=== PATIENT | female | born 1945 | race Caucasian/White ===

== ENCOUNTER 2024-02-25 16:57 | Emergency (ER) | payer OTHER ==
[2024-02-25 17:34] LABS: Absolute Eosinophils 0.1 K/uL (0-0.5); Absolute Lymphocytes (CBC) 1.4 K/uL (0.7-4.9); Absolute Monocytes 0.9 K/uL (0.1-1.3); Basophils % 0.6 % (0-1.3); Eosinophils % 1.9 % (0-4.4); Hematocrit 22.5 % (36.0-45.0); Hemoglobin 6.9 g/dL (12.0-15.0); Lymphocytes % 18.9 % (15.3-44.8); MCHC 30.7 g/dL (32.0-36.0); MCV 78.4 fL (80-100); MPV 8.5 fL (7.6-11.3); Monocytes % 11.6 % (3.3-12.3); Platelets 321 thou/uL (152-406); RBC Red Blood Cell Count 2.88 M/uL (3.86-4.86); Red Cell Distribution Width 19.3 % (12.1-15.2)
[2024-02-25 17:51] LABS: AST/SGOT 12 U/L (15-37); Albumin 1.8 g/dL (3.4-5.0); Albumin/Globulin Ratio 0.3 (1.1-1.8); Alkaline Phosphatase 100 U/L (45-117); Anion Gap 7.2 mEq/L (5.0-15.0); BUN Blood Urea Nitrogen 23 mg/dL (7-18); Bicarbonate 29 mEq/L (21-32); Bilirubin Total 0.2 mg/dL (0.2-1.0); Globulin 5.9 g/dL (2.3-3.5); Glomerular Filtration Rate 29 ml/min (=/>90); Glucose Level 101 mg/dL (74-106); Lipase 50 U/L (13-75); Potassium 4.2 mEq/L (3.5-5.1); Protein, Total 7.7 g/dL (6.4-8.2); Sodium Level 134 mEq/L (136-145)
[2024-02-25 17:57] LABS: ALT/SGPT < 14 U/L (13-56)
[2024-02-25 17:57] LABS: Specific Gravity 1.014 (1.005-1.030); Transitional Epithelial 20-50 /HPF (None Seen); Urine Bacteria <20 /HPF (<20); Urine Bilirubin NEGATIVE (Negative); Urine Blood 3+ (Negative); Urine Clarity Extremely Turbid (Clear); Urine Color Orange (Yellow); Urine Culture Reflex Order REFLEXED; Urine Glucose NEGATIVE (Negative); Urine Ketones NEGATIVE (Negative); Urine Microscopic Reflex YN ORDER UMIC; Urine Nitrite 2+ (Negative); Urine Protein 3+ (Negative); Urine RBC >50 /HPF (None Seen); Urine Urobilinogen Normal (Normal); Urine WBC >50 /HPF (<5); Urine WBC Clump Many /HPF (None Seen)
--- NOTE | 2024-02-25 18:26 | RAD REPORT ---
Stone Protocol CLINICAL INDICATION: Female, 78 years old.displacement of right nephrostomy tube TECHNIQUE: CT abdomen and pelvis was performed, without IV contrast, as per department protocol using a CT stone protocol. Axial, sagittal and coronal reconstructions were obtained. One or more of the following dose reduction techniques were used: Automated exposure control, adjustment of the mA and/o r kV according to the patient size, and/or iterative reconstruction. Unless otherwise specified, incidental findings do not require dedicated imaging follow-up. [id number]. IV CONTRAST: Not administered. COMPARISON: None FINDINGS: The lack of intravenous contrast limits the sensitivity of this exam for evaluation of solid visceral organs, vascular structures, and retroperitoneum. LOWER CHEST: The visualized lung bases are clear. LIVER: Normal in size and contour. No focal lesion. GALLBLADDER/BILE DUCTS: Cholecystectomy? PANCREAS: No mass, ductal dilation, or denilson-pancreatic fluid. SPLEEN: Normal size. No focal lesion. ADRENALS: Normal; no mass. KIDNEYS AND URETERS: Moderate to severe right-sided hydroureteronephrosis. The right-sided nephrostom y tube tract is identified. The right nephrostomy tube is not visualized. Probable cyst in the upper pole of left kidney. URINARY BLADDER: Foreman catheter within the bladder. Possible bladder mass along the right aspect of t he bladder which may be the source of the right-sided hydronephrosis.. GASTROINTESTINAL TRACT: Stomach is non-dilated. Small bowel has normal course and caliber. No colonic wall thickening or pericolonic inflammatory changes. PERITONEUM: No free fluid. ABDOMINAL AORTA AND OTHER VESSELS: Normal caliber aorta and IVC. Atherosclerosis REPRODUCTIVE ORGANS: No pathologic process. MUSCULOSKELETAL: No acute or suspicious osseous abnormality. ADDITIONAL FINDINGS: None. IMPRESSION: Moderate to severe right-sided hydroureteronephrosis. By report, the patient's right sided nephrostom y tube was dislodged. The tract from the tube is identified but the tube is not present. The patient's right ureteral obstruction is probably at the level of the right UVJ/bladder and may be fro m a mass. This is presumably a known finding.
--- NOTE | 2024-02-25 18:45 | ER ---
Nurse's Notes [facility] Name: Rachael Sanchez Age: 78 yrs Sex: Female : 1945 Arrival Date: 02/25/2024 Time: 16:57 Bed 13 Private MD: Diagnosis: Hydronephrosis with ureteral stricture, not elsewhere classified-right;Anemia, unspecified;UTI/ Urinary tract infection, site not specified Presentation: 02/24 17:03 Chief complaint: EMS states: toned out to [facility]; pt. from [facility]; EMS ar6 reports pt woke up and right nephrostomy tube was on the floor. Coronavirus screen: Client denies travel out of the [place] in the last 14 days. At this time, the client does not indicate any symptoms associated with coronavirus-19. Ebola Screen: Patient negative for fever greater than or equal to 101.5 degrees Fahrenheit, and additional compatible Ebola Virus Disease symptoms Patient denies exposure to infectious person. Patient denies travel to an Ebola-affected area in the 21 days before illness onset. No symptoms or risks identified at this time. Initial Sepsis Screen: Does the patient meet any 2 criteria? No. Patient's initial sepsis screen is negative. Does the patient have a suspected source of infection? No. Patient's initial sepsis screen is negative. Risk Assessment: Do you want to hurt yourself or someone else? Patient reports no desire to harm self or others. Onset of symptoms was February 25, 2024. 17:03 Method Of Arrival: EMS: [facility] ar6 17:03 Acuity: MARKOS 3 ar6 Triage Assessment: 17:05 General: Appears in no apparent distress. comfortable, Behavior is calm, cooperative, ar6 appropriate for age. Pain: Denies pain. EENT: Oral mucosa is moist. Neuro: Level of Consciousness is awake, alert, obeys commands, Oriented to person, place, time, situation. Cardiovascular: Capillary refill < 3 seconds. Respiratory: Airway is patent. GI: Abdomen is round non-distended. : right nephrostomy at bedside. Derm: Skin is intact, is healthy with good turgor, Skin is dry, Skin is pink, warm \T\ dry. Musculoskeletal: No signs and/or symptoms reported regarding the musculoskeletal system. Historical: - Allergies: 17:05 No Known Allergies; ar6 - Immunization history:: Adult Immunizations up to date. - Infectious Disease History:: Denies. - Social history:: Smoking status: Patient denies any tobacco usage or history of. Screenin:07 [facility] ED Fall Risk Assessment (Adult) History of falling in the last 3 months, ar6 including since admission No falls in past 3 months (0 pts) Confusion or Disorientation No (0 pts) Intoxicated or Sedated No (0 pts) Impaired Gait Yes (1 pt) Mobility Assist Device Used Yes (1 pt) Altered Elimination No (0 pt) Score/Fall Risk Level 0 - 2 = Low Risk Oriented to surroundings, Maintained a safe environment, Educated pt \T\ family on fall prevention, incl call for assistance when getting out of bed, Hourly rounding (assess needs \T\ fall precautionary measures) done. Abuse screen: Denies threats or abuse. Denies injuries from another. Nutritional screening: No deficits noted. Tuberculosis screening: No symptoms or risk factors identified. Assessment: 17:07 Reassessment: No changes from previously documented assessment. see triage assessment. ar6 19:38 Reassessment: contacted [facility], spoke with Te and was transferred for nurse ar6 to nurseMaite RN. Vital Signs: 17:03 BP 144 / 57; Pulse 67; Resp 18; Temp 98.4; Pulse Ox 98% on R/A; Weight 68.04 kg; Height ar6 5 ft. 5 in. ; Pain 0/10; 17:05 BP 144 / 57; Pulse 67; Resp 18; Temp 98.4; Pulse Ox 98% on R/A; Pain 0/10; ar6 17:24 BP 133 / 66; Pulse 64; Resp 18; Pulse Ox 98% on R/A; ar6 19:39 BP 118 / 58; Pulse 73; Resp 18; Pulse Ox 98% on R/A; ar6 17:03 Body Mass Index 24.96 (68.04 kg, 165.1 cm) ar6 17:03 Pain Scale: Adult ar6 17:05 Pain Scale: Adult ar6 ED Course: 17:01 Patient arrived in ED. ar6 17:03 Judy Davila, OSMAR is Primary Nurse. ar6 17:05 Triage completed. ar6 17:05 Arm band placed on right wrist. ar6 17:07 No apparent distress. Awaiting ED provider evaluation. ar6 17:07 Patient has correct armband on for positive identification. Placed in gown. Bed in low ar6 position. Call light in reach. Side rails up X 1. Provided Education on: plan of care. Pulse ox on. NIBP on. 17:07 No provider procedures requiring assistance completed. ar6 17:08 Ramos Trevizo PA is PHCP. cp 17:08 Yobany Bridges MD is Attending Physician. cp 17:20 Bladder scan completed. 137 ML X2. ar6 17:43 Urinalysis w/ reflexes Sent. ar6 17:44 Foreman cath inserted, using sterile technique, 16 Fr., by hi, balloon inflated, to ar6 gravity drainage, clamped. urine specimen collected. other 175 ML cloudy with odor. Inserted saline lock: 22 gauge in right antecubital area, using aseptic technique. Blood collected. Flushed with 10 mL NS. 18:13 CT Stone Protocol In Process Unspecified. EDMS 18:40 [facility] CONTACTED TO INITIATE TRANSFER, SPOKE WITH SAMANTHA REN [id number]. ty 18:48 Type And Screen Sent. ar6 18:48 Lactate w/ 2H reflex if indic. Sent. ar6 18:48 Urine Culture Sent. ar6 18:58 Blood Culture Adult (2) Sent. ar6 19:38 NURSE TO NURSE. ty 19:50 [facility] CONTACTED FOR TRANSPORT. ty 20:07 PATIENT FACESHEET FAXED TO [facility]. ty 20:[facility] ty 20:45 [facility] DEPARTED. ty Administered Medications: 19:05 Drug: Rocephin IV 1 grams IV at calculated rate once; Given slow IV push per pharmacy ar6 instructions Route: IV; Rate: calculated rate; Site: right antecubital; 20:34 Follow up: Response: No adverse reaction; IV Status: Completed infusion ar6 Medication: 17:44 VIS not applicable for this client. ar6 Outcome: 18:45 ER care complete, transfer ordered by . cp 20:45 Patient left the ED. ar6 Signatures: Dispatcher [employer] EDMS Ramos Trevizo PA PA cp Yandell, Tylor ty Roberts, Amber RN RN ar6
--- NOTE | 2024-02-25 18:45 | EDPHYS ---
Physician Documentation [facility] Name: Rachael Sanchez Age: 78 yrs Sex: Female : 1945 Arrival Date: 02/25/2024 Time: 16:57 Bed 13 Private MD: ED Physician Yobany Bridges HPI: 02/24 17:20 This 78 yrs old Female presents to ER via EMS with complaints of Problem With Urinary cp Catheter. 17:20 Patient is a 78-year-old female who resides in a long-term care facility on hospice cp with a history of bladder cancer who presents to the emergency department after dislodging her right nephrostomy tube. Patient reportedly had the nephrostomy tube placed by KATHY Joseph earlier this year for hydronephrosis of the right kidney. No other complaints expressed by patient. Historical: - Allergies: 17:05 No Known Allergies; ar6 - Immunization history:: Adult Immunizations up to date. - Infectious Disease History:: Denies. - Social history:: Smoking status: Patient denies any tobacco usage or history of. ROS: 17:25 Constitutional: Negative for fever, poor PO intake, cp 17:25 Cardiovascular: Negative for chest pain, cp 17:25 Respiratory: Negative for cough, shortness of breath, wheezing, 17:25 Abdomen/GI: Negative for abdominal pain, vomiting, diarrhea, constipation, 17:25 : Positive for flank pain, difficulty urinating, Negative for hematuria, 17:25 Neuro: Negative for altered mental status, headache, 17:25 All other systems are negative, Exam: 17:30 Constitutional: The patient appears in no acute distress, alert, awake, cp non-diaphoretic, non-toxic, well developed, well nourished, 17:30 Head/Face: Normocephalic, atraumatic. cp 17:30 Chest/axilla: Inspection: normal, 17:30 Cardiovascular: Rate: normal, Rhythm: regular, 17:30 Respiratory: the patient does not display signs of respiratory distress, Respirations: normal, no use of accessory muscles, no retractions, labored breathing, is not present, Breath sounds: are clear throughout, no decreased breath sounds, no stridor, no wheezing, 17:30 Abdomen/GI: Inspection: abdomen appears normal, Palpation: abdomen is soft and non-tender, in all quadrants, 17:30 Back: pain, that is mild, of the right mid back, skin appears with no erythema, 17:30 Neuro: Orientation: to person, situation, Mentation: able to follow commands, Motor: cp moves all fours, no focal deficits, 17:30 Skin: cellulitis, is not appreciated, no rash present. cp Vital Signs: 17:03 BP 144 / 57; Pulse 67; Resp 18; Temp 98.4; Pulse Ox 98% on R/A; Weight 68.04 kg; Height ar6 5 ft. 5 in. ; Pain 0/10; 17:05 BP 144 / 57; Pulse 67; Resp 18; Temp 98.4; Pulse Ox 98% on R/A; Pain 0/10; ar6 17:24 BP 133 / 66; Pulse 64; Resp 18; Pulse Ox 98% on R/A; ar6 19:39 BP 118 / 58; Pulse 73; Resp 18; Pulse Ox 98% on R/A; ar6 17:03 Body Mass Index 24.96 (68.04 kg, 165.1 cm) ar6 17:03 Pain Scale: Adult ar6 17:05 Pain Scale: Adult ar6 MDM: 17:08 Patient medically screened. cp 18:45 Data reviewed: vital signs, nurses notes, lab test result(s), radiologic studies, CT cp scan, and as a result, I will transfer patient. 18:45 Care significantly affected by the following chronic conditions: Cancer. Counseling: I cp had a detailed discussion with the patient and/or guardian regarding the historical points, exam findings, and any diagnostic results supporting the discharge/admit diagnosis, lab results, radiology results, the need to transfer to another facility, [facility] does not immediately have the required specialist. 02/24 17:17 Order name: CBC with Diff; Complete Time: 18:32 cp 02/24 18:32 Interpretation: Normal except: RBC 2.88; HGB 6.9; HCT 22.5; MCV 78.4; MCH 24.0; MCHC cp 30.7; RDW 19.3. 02/24 17:17 Order name: CMP; Complete Time: 18:32 cp 02/24 18:32 Interpretation: Normal except: NA 134; BUN 23; CRE 1.75; GFR 29; AST 12; ALB 1.8; GLOB cp 5.9; A/G 0.3. 02/24 17:17 Order name: Lipase; Complete Time: 18:32 cp 02/24 17:17 Order name: Urinalysis w/ reflexes; Complete Time: 18:32 cp 02/24 18:33 Interpretation: Normal except: [facility] Extremely Turbid; UBLD 3+; UPROT 3+; UNIT 2+; UESTR cp 500; UWBC >50; URBC >50; TREP 20-50; UWBC Clump Many. 02/24 18:01 Order name: Urine Culture EDMS 02/24 18:35 Order name: Lactate w/ 2H reflex if indic. cp 02/24 18:35 Order name: Type And Screen cp 02/24 18:35 Order name: Blood Culture Adult (2) cp 02/24 19:06 Order name: ABO/RH no charge EDMS 02/24 17:35 Order name: CT Stone Protocol; Complete Time: 18:32 cp 02/24 17:17 Order name: IV Saline Lock; Complete Time: 17:43 cp 02/24 17:17 Order name: Labs collected and sent; Complete Time: 17:43 cp 02/24 17:18 Order name: Foreman; Complete Time: 17:43 cp Administered Medications: 19:05 Drug: Rocephin IV 1 grams IV at calculated rate once; Given slow IV push per pharmacy ar6 instructions Route: IV; Rate: calculated rate; Site: right antecubital; 20:34 Follow up: Response: No adverse reaction; IV Status: Completed infusion ar6 Disposition: 02/25 19:19 Chart complete. cp Disposition Summary: 02/25/24 18:45 Transfer Ordered Notes: Transfer Location: [facility] cp Reason: Higher level of care cp Condition: Stable cp Problem: new cp Symptoms: have improved cp Accepting Physician: DR Mary Lou Otero(02/25/24 20:45) ar6 Diagnosis - Hydronephrosis with ureteral stricture, not elsewhere classified - right cp - Anemia, unspecified cp - UTI/ Urinary tract infection, site not specified cp Forms: - Medication Reconciliation Form cp - SBAR form cp Addendum: 02/27/2024 19:58 Co-signature as Attending Physician, Yobany Bridges MD I reviewed the patient's care r t provided by the Advanced Practice Provider and agree with the diagnosis and treatment plan. Signatures: Dispatcher [employer] EDMS Ramos Trevizo PA PA cp Yobany Bridges MD MD rt Judy Davila RN RN ar6 Corrections: (The following items were deleted from the chart) 02/24 17:17 17:17 CBC+H.LAB.BRZ ordered. EDMS EDMS 17:17 17:17 COMPREHENSIVE METABOLIC PANEL+C.LAB.BRZ ordered. EDMS EDMS 17:17 17:17 LIPASE+C.LAB.BRZ ordered. EDMS EDMS 18:35 18:35 LACTATE+C.LAB.BRZ ordered. EDMS EDMS 18:35 18:35 TYPE AND SCREEN+BB.LAB.BRZ ordered. EDMS EDMS 18:35 18:35 BLOOD CULTURE*+BA.LAB.BRZ ordered. EDMS EDMS 19:03 18:45 doctor cp cp 20:45 19:03 DR Mary Lou Otero cp ar6
[2024-02-25] MEDS ORDERED: CEFTRIAXONE 1000 MG/VIAL ONE (18:59)
[2024-02-25 20:52] VITALS: TEMP 98.4; O2SAT 98
[2024-02-25 20:55] VITALS: BP 118/58
== END 2024-02-25 20:45 | disposition short-term general hospital (02) ==
LOC: ER 16:57
DX: N13.1 Hydronephrosis with ureteral stricture, not elsewhere classified (principal); N39.0 Urinary tract infection, site not specified; D64.9 Anemia, unspecified
CPT/HCPCS: 96365; 87040 ×2; 87088; 85025; 81001; 87086; 36415; 86900; 86850; 86901; 83605; 87077; 87186; 83690; 80053; 76377; 74176; 51702; 99285; J0696